=== PATIENT | male | born 1960 | race Caucasian/White ===

== ENCOUNTER 2021-06-10 15:08 | Emergency (ER) | payer OTHER ==
[~2021-06-10] VITALS: Ht 175.3 cm; Wt 79.4 kg
[2021-06-10 15:20] VITALS: BP_SYST 134
--- NOTE | 2021-06-10 15:20 | NUR ---
PT TRACL AND PLACED IN WAITING ROOM FOR AVAILABLE BED IN MAIN ED
--- NOTE | 2021-06-10 16:09 | NUR ---
Patient to ER bed 03 to gown for evaluation. Side rails up.
--- NOTE | 2021-06-10 16:36 | NUR ---
piv placed blood to lab
--- NOTE | 2021-06-10 17:13 | NUR ---
AMBULATED TO BR WITH STEADY GAIT STATES NOT DIZZY
[2021-06-10 17:16] LABS: HEMATOCRIT 43.8 % (36-54); HEMOGLOBIN 14.9 g/dL (14.0-18.0); MEAN CORPUSCULAR HGB CONC 34 % (32-36)
[2021-06-10 17:24] LABS: BASOPHILS % (AUTO) 0.7 % (0.0-2.0); EOSINOPHILS % (AUTO) 0.2 % (0.0-4.0); LYMPHOCYTES # (AUTO) 0.9 K/uL (1.0-5.5); LYMPHOCYTES % (AUTO) 13.5 % (20.5-51.5); MEAN CORPUSCULAR HEMOGLOBIN 30 pg (27-31); MEAN CORPUSCULAR VOLUME 87 fL (79.0-98.0); MONOCYTES # (AUTO) 0.7 K/uL (0.0-1.0); MONOCYTES % (AUTO) 9.9 % (1.7-9.3); NEUTROPHILS # (AUTO) 5.3 K/uL (1.8-7.7); NEUTROPHILS % (AUTO) 75.7 % (40.0-70.0); PLATELET COUNT (AUTO) 253 K/uL (130-430); RED BLOOD CELL COUNT(AUTO) 5.05 MIL/uL (4.2-6.2); RED CELL DISTRIBUTION WIDTH 13.8 % (9.0-15.0)
[2021-06-10] MEDS ORDERED: NACL 0.9% 1,000 ML IV ONE (17:45)
[2021-06-10 17:47] LABS: ANION GAP 10 (5-15); CALCIUM 8.3 mg/dL (8.4-11.0); CHLORIDE 100 mmol/L (98-107); CREATININE 0.97 mg/dL (0.55-1.30); GLUCOSE 95 mg/dL (70-99); POTASSIUM 3.8 mmol/L (3.5-5.1); SODIUM SERUM 136 mmol/L (136-145); UREA NITROGEN, BLOOD 15 mg/dL (8-21)
[2021-06-10 17:48] LABS: GFR AFRICAN AMERICAN 101 mL/min (>90)
[2021-06-10 17:49] LABS: BILIRUBIN,URINE NEGATIVE (NEGATIVE); BLOOD, URINE NEGATIVE (NEGATIVE); CLARITY/URINE CLEAR (CLEAR); COLOR,URINE YELLOW (YELLOW); GLUCOSE,URINE NEGATIVE (NEGATIVE); KETONES,URINE NEGATIVE (NEGATIVE); LEUKOCYTE ESTERASE ,URINE NEGATIVE (NEGATIVE); NITRITE, URINE NEGATIVE (NEGATIVE); PH,URINE 7.5 (5.0-8.0); PROTEIN URINE NEGATIVE (NEGATIVE); UROBILINOGEN,URINE 0.2 (0.2-1.0)
[2021-06-10 17:58] LABS: ALANINE AMINOTRANSFERASE 39 U/L (12-78); ASPARTATE AMINOTRANSFERASE 24 U/L (10-37); TOTAL BILIRUBIN 0.2 mg/dL (0.0-1.0)
[2021-06-10 18:03] LABS: ALCOHOL, BLOOD < 3 mg/dL (<10)
--- NOTE | 2021-06-10 19:11 | NUR ---
report to rosmery
--- NOTE | 2021-06-10 19:19 | NUR ---
RECEIVED REPORT FROM DAYSHIFT NURSE, ALL QUESTIONS ANSWERED. PENDING DISPOSITION, WILL CONTINUE TO MONITOR NEEDED
--- NOTE | 2021-06-10 20:41 | NUR ---
REPEAT EKG COMPLETED PER MD ORDER.
--- NOTE | 2021-06-10 21:59 | NUR ---
PT IN BED RESTING EYES OPEN, NO ACUTE DISTRESS. PT AMBULATED TO RESTROOM WITHOUT ASSISTANCE. WILL CONTINUE TO MONITOR.
[2021-06-10 23:00] VITALS: BP_SYST 137
--- NOTE | 2021-06-10 23:13 | NUR ---
PT NOTIFIED OF DISCHARGE. PT PROVIDED WITH PAPERWORK, ENCOURAGED PT TO FOLLOW UP WITH PRIMARY CARE PROVIDER WITHIN 3 DAYS. IV REMOVED FROM THE RIGHT AC, TIP OF CATHETER INTACT. CLEAN GAUZE WITH PAPER TAPE APPLIED TO SITE. INSTRUCTED PT TO LEAVE DRESSING IN PLACE FOR 30 PRIOR TO REMOVAL. PT AMBULATORY WITH STEADY GAIT, PT DISCHARGED WITH ALL BELONGINGS IN STABLE CONDITION. ALL QUESTIONS ANSWERED.
== END 2021-06-10 23:13 | disposition home or self-care (01) ==
LOC: SED 15:08
DX: R42 Dizziness and giddiness (principal); Z79.899 Other long term (current) drug therapy
CPT/HCPCS: 36415; 80053; 81003; 84484; 85025; 93005; 96360; 99285; G0482; J7030